=== PATIENT | female | born 1985 | race African-American/Black ===

== ENCOUNTER 2017-10-16 11:02 | Emergency (ER) | payer SELFPAY ==
[2017-10-16] MEDS: HYDROcodone/APAP 5/325MG 1 TAB TABLET PO (12:35)
== END 2017-10-16 12:47 | disposition home or self-care (01) ==
LOC: ER 11:02
DX: T22.111A Burn of first degree of right forearm, initial encounter (principal); M25.512 Pain in left shoulder; R51 Headache; Z90.89 Acquired absence of other organs; Z98.890 Other specified postprocedural states; W22.11XA Striking against or struck by driver side automobile airbag, initial encounter; Y93.89 Activity, other specified; Y92.89 Other specified places as the place of occurrence of the external cause; Y99.8 Other external cause status
CPT/HCPCS: 70450; 72125; 73030; 99284